=== PATIENT | male | born 1980 | race Caucasian/White ===

== ENCOUNTER 2017-12-24 17:20 | Emergency (ER) | payer OTHER ==
[~2017-12-24] VITALS: Ht 180.3 cm; Wt 99.8 kg
[~2017-12-24 17:20] MED LIST: AZITHROMYCIN250 MG PO; BACTRIM DS TAB1 EACH PO; IBUPROFEN600 MG PO; KEFLEX500 MG PO; NORCO 5-325 TA1 EACH PO; PREDNISONE20 MG PO; PROVENTIL HFA6.7 GM INH
[2017-12-24] MEDS ORDERED: CYCLOBENZAPRINE10 MG PO (20:36)
[2017-12-24] MEDS ORDERED: IBUPROFEN600 MG PO (20:36)
== END 2017-12-24 21:08 | disposition home or self-care (01) ==
LOC: ED 17:20
DX: M54.5 Low back pain (principal)
CPT/HCPCS: 72100; 96372; 99283; J1170

== ENCOUNTER 2018-06-02 22:18 | Emergency (ER) | payer OTHER ==
[~2018-06-02] VITALS: Ht 180.3 cm; Wt 127.0 kg
[~2018-06-02 22:18] MED LIST changes: +CYCLOBENZAPRINE10 MG PO
== END 2018-06-02 23:48 | disposition home or self-care (01) ==
LOC: ED 22:18
DX: S43.401A Unspecified sprain of right shoulder joint, initial encounter (principal); W00.0XXA Fall on same level due to ice and snow, initial encounter
CPT/HCPCS: 73030; 99283

== ENCOUNTER 2020-08-31 05:17 | Day surgery (SDC) | payer OTHER ==
[~2020-08-31] VITALS: Ht 180.3 cm; Wt 136.4 kg
[~2020-08-31 05:17] MED LIST changes: +CEPHALEXIN500 MG PO
[2020-08-31] MEDS ORDERED: ADVIL200 MG PO (05:37)
--- NOTE | 2020-08-31 09:50 | NUR ---
DR. ALMANZA IN PT ROOM.
--- NOTE | 2020-08-31 10:48 | NUR ---
08/31/20 1048 Evie Huffman 1045 PATIENT ARRIVES TO PACU AWAKE. DENIES PAIN OR NAUSEA. RESP EVEN AND UNLABORED, ROOM AIR SATS >95%. DENIES PAIN OR NAUSEA.
--- NOTE | 2020-08-31 11:23 | OR ---
[facility] [address], [place] [address] Signed DATE OF OPERATION: 08/31/2020 SURGEON: Airam Mario MD PREOPERATIVE DIAGNOSIS: Left perianal abscess 7-9 o'clock position. POSTOPERATIVE DIAGNOSIS: Left perianal abscess 7-9 o'clock position. PROCEDURES: 1. Incision and drainage, left perianal abscess. 2. Placement of seton stitch. ESTIMATED BLOOD LOSS: None. INDICATIONS: Luz Maria is a 40-year-old obese gentleman, who has moved up to [facility] from close to his oldest son. The last two days, he has had significant pain and swelling to the left side of his anus. It is somewhat anteriorly. He finally came to emergency room for evaluation. On exam, he had pain, but ER doctor did not feel confident about area of swelling or fluctuance. White count was normal. Therefore, the patient had a CT scan of abdomen and pelvis performed. He has a 25 x 17 x 23 mm fluid collection consistent with an abscess in the left perianal position from about the 7 to 9 o'clock position. I was therefore asked to bring him over to the OR through the ER physician. I had met with Luz Maria and we reviewed the above findings. He has been given Rocephin and Flagyl. I reviewed with him the nature of a perianal abscess and the idea of an anal fistula. He understands these have propensity to recur. He knows there is risk to surgery including, but not limited to bleeding, infection, scarring, change in contour of the skin, leakage around the anus and/or recurrent perianal abscess. He had expressed understanding and wished to proceed. DESCRIPTION OF PROCEDURE: I met with Luz Maria in the preop area. We were able to palpate this area quite readily. Luz Maria confirmed that area. We marked that appropriately with a pen. After this, he was given a saddle block by our nurse setter induction heating equipment. He was then taken in the operating room and placed in the prone alexandr-knife position under monitored anesthesia care. He was prepped and draped in the usual sterile fashion. SCDs were utilized. He did not receive any subcutaneous heparin. A digital rectal exam was performed and again, we Electronically Signed By: AIRAM MARIO MD 08/31/20 1123 PATIENT NAME: LUZ MARIA SMITH OPERATIVE REPORT DATE OF : 76 REPORT #: [id number] PHYSICIAN: AIRAM MARIO MD PCP: NO PRIMARY CARE PHYSICIAN REPORT IS CONFIDENTIAL AND NOT TO BE RELEASED WITHOUT AUTHORIZATION [facility] [address], [place] [address] Signed could easily palpate this area about 2.5 cm in diameter in the left lateral position. He had good sphincter tone. With a half-nuñez retractor, we examined the full extent of the anal canal. He does have some internal and external hemorrhoids. We did see some pus at the dentate line in a direct radial fashion down from this palpable mass. We opened up the skin. Next, the anal verge entered into the abscess cavity. We took cultures and evacuated the pus. The wound was irrigated and suctioned out until clear. We used our tonsils to place yellow seton vessel through this area at the dentate line. This was then tied off. Local anesthetic was then applied. Dry gauze was placed over this along with an ABD and some underwear. Luz Maria was then rotated into the supine position onto his hospital bed and taken into recovery room in stable condition. Airam Mario MD ALB/MODL /[id number] cc: Airam Mario MD Copies: AIRAM MARIO MD ~ Electronically Signed By: AIRAM MARIO MD 08/31/20 1123 PATIENT NAME: LUZ MARIA SMITH OPERATIVE REPORT DATE OF : 76 REPORT #: [id number] PHYSICIAN: AIRAM MARIO MD PCP: NO PRIMARY CARE PHYSICIAN REPORT IS CONFIDENTIAL AND NOT TO BE RELEASED WITHOUT AUTHORIZATION
--- NOTE | 2020-09-01 06:05 | CONS ---
[facility] [address], [place] [address] Signed DATE OF CONSULTATION: 08/31/2020 CHIEF COMPLAINT: Left perianal pain. 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 He has moved up to [place], [place] to be closer to his oldest son. Two days ago, he started to develop pain and swelling on the left side of the anus somewhat anteriorly at about the 7 o'clock position. He finally came to emergency room for evaluation. On exam, no obvious findings were noted. Although, he could point to the area of pain. He had a CT scan of the abdomen and pelvis done and he has a 25 x 17 x 23 mm perianal abscess. I had been called as a general surgeon on-call. We gave him Rocephin and Flagyl and had him come over to our day surgery area. PAST MEDICAL HISTORY: Umbilical MRSA, diverticulosis, valley fever in 2004, heart murmur as a child. PAST SURGICAL HISTORY: None. SOCIAL HISTORY: He does not smoke or drink. He has no primary care provider. 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 He is with his girlfriend of 5 years. They have 1 child together. He has 1 child from a previous marriage and she has 2 children from a previous marriage. His mother is Ximena at [phone]. He prefers the [facility]. He has no primary care provider. FAMILY HISTORY: Mother had some skin cancer on her breast actually. REVIEW OF SYSTEMS: He had 10 systems reviewed. He seems to be healthy except for his obesity. ALLERGIES: None. MEDICATIONS: Ibuprofen. PHYSICAL EXAMINATION: VITAL SIGNS: His blood pressure is 130/92, heart rate is 93, heart rate 14, temperature is 98.4. He is 93% on room air. He is 5 feet 11 inches at 130 kg. Electronically Signed By: AIRAM MARIO MD 09/01/20 0605 PATIENT NAME: LUZ MARIA SMITH CONSULTATION DATE OF : 76 REPORT #: [id number] PHYSICIAN: AIRAM MARIO MD PCP: NO PRIMARY CARE PHYSICIAN REPORT IS CONFIDENTIAL AND NOT TO BE RELEASED WITHOUT AUTHORIZATION [facility] [address], [place] [address] Signed GENERAL: Luz Maria is a 40-year-old gentleman who generally appears healthy and at his stated age. He is clearly obese. He is very cooperative and excellent historian. LUNGS: Clear to auscultation bilaterally. HEART: Regular rate and rhythm without murmurs. ABDOMEN: Obese, but soft. He rolled over in the prone position, was able to point to the 7 o'clock position. I can feel the rounded indurated area associated with his abscess on the left side of the anus at the 7 o'clock position. We marked that with a pin. LABORATORY DATA: His white blood cell count 9.7, hemoglobin is 14. Electrolytes were not drawn. RADIOGRAPHIC STUDIES: A CT scan of the abdomen and pelvis shows a left perianal fluid collection around 25 x 17 x 23 mm consistent with an abscess. ASSESSMENT AND PLAN: Luz Maria is a 40-year-old obese gentleman with a left perianal abscess. He needs to undergo incision and drainage. I have reviewed perianal abscesses with him in detail. He understands they have a high propensity to recur. Our goal today is to incise and drain the abscess and allow to heal in secondarily. At least half of these will recur. He knows there is risk including, but not limited to bleeding, infection, scarring, change in contour of the skin, as well as recurrent perianal abscess. He has expressed understanding and would like to proceed. Airam Mario MD ALB/MODL /[id number] cc: Chart Filed Incomplete Airam Mario MD Copies: CHART FILED INCOMPLETE Electronically Signed By: AIRAM MARIO MD 09/01/2005 PATIENT NAME: LUZ MARIA SMITH CONSULTATION DATE OF : 76 REPORT #: [id number] PHYSICIAN: AIRAM MARIO MD PCP: NO PRIMARY CARE PHYSICIAN REPORT IS CONFIDENTIAL AND NOT TO BE RELEASED WITHOUT AUTHORIZATION [facility] [address], [place] [address] Signed AIRAM MARIO MD ~ Electronically Signed By: AIRAM MARIO MD 09/01/20 0605 PATIENT NAME: LUZ MARIA SMITH CONSULTATION DATE OF : 76 REPORT #: [id number] PHYSICIAN: AIRAM MARIO MD PCP: NO PRIMARY CARE PHYSICIAN REPORT IS CONFIDENTIAL AND NOT TO BE RELEASED WITHOUT AUTHORIZATION
== END 2020-08-31 11:15 | disposition home or self-care (01) ==
LOC: ED 05:17 → DS 07:16
PROVIDERS: ATTEND Colon & Rectal Surgery
PROC: 0DQQXZZ Repair Anus, External Approach (ICD-10-PCS; 2020-08-31)
PROC: 0D9QXZZ Drainage of Anus, External Approach (ICD-10-PCS; principal; 2020-08-31 10:30)
DX: K61.0 Anal abscess (principal); K64.4 Residual hemorrhoidal skin tags; K64.8 Other hemorrhoids; E66.9 Obesity, unspecified; Z68.41 Body mass index [BMI] 40.0-44.9, adult
CPT/HCPCS: 00902; 74177; 80053; 85025; 87070; 87075; 87205; 96374; 96375; 99284-25; C9803; J0696; J1170; J1885; J2001; J2250; J2405; J2704; J3010; J7121; Q9967; U0003

== ENCOUNTER 2020-09-04 21:44 | Observation (INO) | payer OTHER ==
[~2020-09-04] VITALS: Ht 180.3 cm; Wt 140.0 kg
[~2020-09-04 21:44] MED LIST changes: +ADVIL200 MG PO
--- OUTSIDE RECORDS SUMMARY | 2020-09-04 21:48 | XMS ---
PreManage Notification: LUZ MARIA SMITH Security Outpatient Physical Therapist Assistant Events No recent Security Events currently on file CRITERIA MET - [facility] - 2 Visits in 30 Days CARE PROVIDERS There are no care providers on record at this time. Luis has no Care Guidelines for this patient. Laura VISIT COUNT (12 MO.) 2 [facility] [place] [facility] TOTAL 2 NOTE: Visits indicate total known visits. ED/C VISIT TRACKING (12 MO.) 09/04/2020 21:45 [facility] [place] TYPE: Emergency COMPLAINT: - POST OP PROBLEM 08/31/2020 05:18 [facility] [place] TYPE: Emergency COMPLAINT: - PAIN INPATIENT VISIT TRACKING (12 MO.) No inpatient visits to display in this time frame [email or web address]
[2020-09-04] MEDS ORDERED: AMOX TR-K CLV1 EACH PO (22:09)
--- NOTE | 2020-09-05 02:39 | NUR ---
09/05/20 0239 Jane Powers PT ARRIVES TO PACU, AROUSABLE TO STIMULUS. HE HAS OBVIOUS SLEEP APNEA WITH SNORING.
--- NOTE | 2020-09-05 03:00 | NUR ---
pt ARRIVED TO FLOOR, RECEIVED REPORT FROM ANISA HENDRICKSON. pt ABLE TO TRANSFER SELF FROM STRETCHER TO BED. THIS RN TO DO ADMISSION.
--- NOTE | 2020-09-05 03:30 | NUR ---
ASSESSMENT DONE. DENIES PAIN. NO BLEEDING NOTED ON DRESSING. pt PROVIDED WITH CLEAR LIQUIDS. DENIES NAUSEA. CALL LIGHT WITHIN REACH. EDUCATED TO CALL PRIOR TO GETTING UP. pt VERBALIZED UNDERSTANDING.
--- NOTE | 2020-09-05 04:27 | NUR ---
ROUNDED ON pt. RESTING IN BED WITH EYES CLOSED, RESPIRATIONS REGULAR AND UNLABORED. CALL LIGHT WITHIN REACH.
--- NOTE | 2020-09-05 05:46 | NUR ---
IN TO DO ASSESSMENT. pt WOKE TO VOICE. DENIED PAIN AND NAUSEA. NOTED SCANT SS SHADOWING ON ABD PAD, REPLACED PER ORDERS. pt DENIED NUMBNESS TO PELVIC AREA. CMS INTACT. NO CHANGES TO ASSESSMENT. CALL LIGHT WITHIN REACH.
--- NOTE | 2020-09-05 08:56 | NUR ---
Admin two tabs [place] 5/325mg po and Ibuprofen 800mg po for reports of 7/10 rectal pain.
--- NOTE | 2020-09-05 09:24 | CONS ---
[facility] [address], [place] [address] Signed DATE OF CONSULTATION: 09/04/2020 CHIEF COMPLAINT: Rectal bleeding. HISTORY OF PRESENT ILLNESS: Luz Maria is a 40-year-old obese gentleman, who came on 08/31/2020 for perianal abscess. He underwent incision and drainage with this placement of a seton stitch. He had been discharged home and doing well. He drove over [address] today and he came back, and noticed rectal bleeding. He came to emergency room for evaluation. Direct pressure did not control the bleeding. We are going to inject some local anesthetic with epinephrine in that area, but he did not tolerate that particular well. Seems like the bleeding come out from the deeper into the wound around the seton stitch. Consequently, I was asked to come and see him here in the emergency room. PAST MEDICAL HISTORY: Umbilical MRSA, diverticulosis, valley fever in 2004, heart murmur as a child. PAST SURGICAL HISTORY: Incision and drainage of a perirectal abscess. SOCIAL HISTORY: He does not smoke or drink. He has no primary care provider. 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 He has been with his girlfriend in the last 5 years, who happens to manage our local [employer] store. They have one child together. His mother is Ximena at [phone]. He prefers the [employer] [facility]. FAMILY HISTORY: He has had his mother had skin cancer and breast cancer. His mother had skin cancer on her breast. REVIEW OF SYSTEMS: He had 10 systems reviewed. These are actually pretty healthy except for his obesity. ALLERGIES: None. MEDICATIONS: Ibuprofen. PHYSICAL EXAMINATION: VITAL SIGNS: His blood pressure is 142/91, his heart rate is 89, respiratory rate 20, temperature is 98.1, and he is 97% on room air. Electronically Signed By: AIRAM MARIO MD 09/05/20 0924 PATIENT NAME: LUZ MARIA SMITH CONSULTATION DATE OF : 76 REPORT #: [id number] PHYSICIAN: AIRAM MARIO MD PCP: NO PRIMARY CARE PHYSICIAN REPORT IS CONFIDENTIAL AND NOT TO BE RELEASED WITHOUT AUTHORIZATION [facility] [address], [place] [address] Signed GENERAL: Luz Maria is a 40-year-old gentleman, appears healthy and at his stated age, lying supine in his hospital bed. He is alert, awake, and interactive. LUNGS: Clear to auscultation. HEART: Regular rate and rhythm. ABDOMEN: Obese. RECTAL: Delayed at the time of the surgery. LABORATORY DATA: His white blood count 6.6, his hemoglobin is 13.7, it was originally 14, and platelets are 231. RADIOGRAPHIC STUDIES: None. ASSESSMENT AND PLAN: Luz Maria is a 40-year-old gentleman, who has some bleeding following incision and drainage of a perirectal abscess and placement of seton stitch. It may be down deeper in the abscess cavity. We may have to do a sphincterotomy and open that up completely or we may be able just pack the wound and we will keep him at least for overnight and see if that does not settle down. I have explained this to Luz Maria in detail. He has expressed understanding and would like to proceed. He understands there is risk to that surgery including, but not limited to bleeding, infection, scarring, change in contour of the skin as well as recurrent perirectal abscesses and fecal leakage and/or incontinence. He has expressed understanding and would like to proceed. Airam Mario MD [facility]/MODL /[id number] cc: Airam Mario MD Copies: AIRAM MARIO MD ~ Electronically Signed By: AIRAM MARIO MD 09/05/20 0924 PATIENT NAME: LUZ MARIA SMITH CONSULTATION DATE OF : 76 REPORT #: [id number] PHYSICIAN: AIRAM MARIO MD PCP: NO PRIMARY CARE PHYSICIAN REPORT IS CONFIDENTIAL AND NOT TO BE RELEASED WITHOUT AUTHORIZATION
--- NOTE | 2020-09-05 09:24 | OR ---
[facility] [address], [place] [address] Signed DATE OF OPERATION: 09/04/2020 SURGEON: Airam Mario MD PREOPERATIVE DIAGNOSIS: Perianal postoperative bleeding, status post incision and drainage of left perianal abscess and seton stitch placement. POSTOPERATIVE DIAGNOSIS: Perianal postoperative bleeding, status post incision and drainage of left perianal abscess and seton stitch placement. PROCEDURES: 1. Exam under anesthesia. 2. Control of bleeding. ESTIMATED BLOOD LOSS: Minimal. FINDINGS: Luz Maria had bleeding from the skin edge with the knot of the vessel loop it rubs when he drove several hours one way today. We removed the knot from our vessel loop and used 3-0 silk stitches x2 to hold the vessel loop in place. INDICATIONS: Luz Maria is a 40-year-old obese gentleman, who came to us on 08/31/2020 with a left perianal abscess. He was taken to the operating room. An incision and drainage of the abscess. We could see the pus coming through the dentate line, so we placed a yellow vessel loop through here. We used three knots on the vessel loop to secure it in position. He had drove several hours one way today in his car. He came to the emergency room with bleeding from that area. The ER doctor really was unable to ascertain that bleeding site and Luz Maria did not tolerate injection of local anesthetic with epinephrine. Consequently, came to emergency room to see him. I explained Luz Maria we would take him over to the operating room for an exam under anesthesia, so we could find the bleeding site and get that under control. He understands this is very similar to what he went through just a few days ago. At this time, and I would keep him through the night till morning. He was 1st happy that he is in good position, no longer bleeding, will be let him go home tomorrow morning. He understands there is risk including, but not limited to bleeding, infection, scarring, change in contour of the skin, recurrent perianal abscesses, and possible fecal soilage incontinence. He had Electronically Signed By: AIRAM MARIO MD 09/05/20 0924 PATIENT NAME: LUZ MARIA SMITH OPERATIVE REPORT DATE OF : 76 REPORT #: [id number] PHYSICIAN: AIRAM MARIO MD PCP: NO PRIMARY CARE PHYSICIAN REPORT IS CONFIDENTIAL AND NOT TO BE RELEASED WITHOUT AUTHORIZATION [facility] [address], [place] [address] Signed expressed understanding and wished to proceed. PROCEDURE NOTE: Luz Maria was taken into our operating room and placed in the prone alexandr-knife position. He had received a saddle block from our nurse real estate assessor. He was given monitored anesthesia care by the nurse real estate assessor. We did not give him any antibiotics. We did not give him any heparin. SCDs were utilized. He was then prepped and draped in the usual sterile fashion. On examination, we could see there was a small arterial in the edge of the skin out laterally, that was bleeding. This is the area where the not on the seton stitch was rubbing. We simply cauterized that and all bleeding stopped. We then ended the knots on the yellow vessel loop and we used 3-0 silk suture x2 to tie the vessel loop. After this, we injected local anesthetic in and around the wound. We had examined the anal canal with the help of the half-nuñez retractor and no other bleeding source was found. He was then cleaned and a dry ABD and underwear were applied. He was then rotated onto his hospital bed and taken into recovery room in stable condition. Airam Mario MD [facility]/MODL /[id number] cc: Airam Mario MD Copies: AIRAM MARIO MD ~ Electronically Signed By: AIRAM MARIO MD 09/05/20 0924 PATIENT NAME: LUZ MARIA SMITH SUSAN OPERATIVE REPORT DATE OF : 76 REPORT #: [id number] PHYSICIAN: AIRAM MARIO MD PCP: NO PRIMARY CARE PHYSICIAN REPORT IS CONFIDENTIAL AND NOT TO BE RELEASED WITHOUT AUTHORIZATION
== END 2020-09-05 11:25 | disposition home or self-care (01) ==
LOC: ED 21:44 → MS 21:46
PROVIDERS: ADMIT Colon & Rectal Surgery; ATTEND Colon & Rectal Surgery
PROC: 0W3M0ZZ Control Bleeding in Male Perineum, Open Approach (ICD-10-PCS; principal; 2020-09-04)
DX: K91.840 Postprocedural hemorrhage of a digestive system organ or structure following a digestive system procedure (principal); E66.9 Obesity, unspecified; Z20.822 Contact with and (suspected) exposure to COVID-19; Z98.890 Other specified postprocedural states; Y65.8 Other specified misadventures during surgical and medical care
CPT/HCPCS: 00902; 85025; 96374; 96375; 96376; 99284-25; C9803; G0378; J1170; J2001; J2250; J2405; J2704; J3010; J7030; J7121; U0003

== ENCOUNTER 2020-09-18 19:11 | Observation (INO) | payer OTHER ==
[~2020-09-18] VITALS: Ht 180.3 cm; Wt 136.1 kg
[~2020-09-18 19:11] MED LIST changes: +AMOX TR-K CLV1 EACH PO
--- OUTSIDE RECORDS SUMMARY | 2020-09-18 19:14 | XMS ---
PreManage Notification: LUZ MARIA SMITH Security Clinical Education Manager Events No recent Security Events currently on file CRITERIA MET - [facility] - 2 Visits in 30 Days CARE PROVIDERS There are no care providers on record at this time. Luis has no Care Guidelines for this patient. Laura VISIT COUNT (12 MO.) 3 [facility] [facility] TOTAL 3 NOTE: Visits indicate total known visits. ED/UCC VISIT TRACKING (12 MO.) [facility] COMPLAINT: - POST OP SWELLING 09/04/2020 21:45 [facility] [place] TYPE: Emergency COMPLAINT: - POST OP PROBLEM 08/31/2020 05:18 [facility] [place] TYPE: Emergency COMPLAINT: - PAIN INPATIENT VISIT TRACKING (12 MO.) 09/04/2020 21:46 [facility] [place] TYPE: Observation COMPLAINT: - POST OP BLEEDING DIAGNOSES: - Postprocedural hemorrhage of skin and subcutaneous tissue following other procedure - Other specified misadventures during surgical and medical care - Postprocedural hemorrhage of a digestive system organ or structure following a digestive system procedure - Other specified postprocedural states - Obesity, unspecified [email or web address]
--- NOTE | 2020-09-19 01:40 | NUR ---
PT TO ROOM 125 FROM ED VIA STRETCHER. ABLE TO TRANSFER SELF TO BED. ALERT AND ORIENTED. ORDERS RECEIVED. IVF INFUSING PER ORDER. PRN FOR PAIN ADMINISTERED FOR REPORTED 5/10 HEADACHE. PERIANAL ABSCESS WITH SMALL AMOUNT DRAINAGE. LOOP DRAIN IN PLACE. PT ORIENTED TO ROOM AND NURSE CALL LIGHT. DENIES QUESTIONS OR CONCERNS. CALL LIGHT IN REACH.
--- NOTE | 2020-09-19 02:26 | NUR ---
PT REPORTS CONTINUED HEADACHE IN SPITE OF PAIN MED ADMINISTRATION. DR. GAN NOTIFIED. NEW TELEPHONE ORDERS RECEIVED. VERIFIED WITH READ BACK METHOD.
--- NOTE | 2020-09-19 02:47 | NUR ---
PT WITH LARGE EMESIS. REPORTS FEELING NAUSEATED DUE TO "BAD HEADACHE". PRN FOR NAUSEA ADMINISTERED. PRN ADMINISTERED FOR REPORTED 8/10 HEADACHE/"BUTT PAIN". NO FURTHER NEEDS AT THIS TIME.
--- NOTE | 2020-09-19 03:38 | NUR ---
IN TO ROUND ON PT. PT REPORTS JAMES AND NAUSEA MUCH IMPROVED AFTER PRN ADMINISTRATION. UP TO BR WITH MINIMAL SBA TO VOID. GAIT STEADY. BACK TO BED, LEILANI WELL. DENIES FURTHER NEEDS. CALL LIGHT IN REACH.
--- NOTE | 2020-09-19 06:15 | NUR ---
PT UP TO BR FOR SITZ BATH. PT ONLY ABLE TO TOLERATE <10 MIN IT INCREASED PAIN. BACK TO BED. IVF INFUSING. NO FURTHER NEEDS.
--- NOTE | 2020-09-19 06:27 | NUR ---
IV ABX INFUSING. PRN FOR PAIN ADMINISTERED FOR REPORTED HEADACHE/PETER PAIN.
--- NOTE | 2020-09-19 07:37 | NUR ---
this rn received report from jackie ortiz. pt appears to be resting with respirations noted, pt is off loading on his side
--- NOTE | 2020-09-19 08:30 | NUR ---
THIS RN IN PTS ROOM PER PT REQUEST DUE TO PT STATING HIS IV WAS BEEPING. PT ALSO STATES THAT HE WAS HAVING A BIT MORE PAIN IN HIS RECTUM AREA. THIS RN STATES IT IS A BIT TOO EARLY TO GIVE TORADOL. THIS RN DISCUSSED WITH PT THAT DILUDID MAY HAVE CAUSED HIS SEVERE HEADACHE EARLIER.
--- NOTE | 2020-09-19 09:45 | NUR ---
THIS RN IN PTS ROOM TO PROVIDE PT WITH 30MG OF TORADOL PER PT REQUEST. PT REPORTS PAIN IN THE RECTUM AREA IS 6/10.
--- NOTE | 2020-09-19 10:50 | NUR ---
THIS RN IN PTS ROOM TO HAVE PT SIGN CONSENT FORM FOR SURGERY PER . PT STATES THAT HE HAS NO QUESTIONS AND THIS WAS THE ROUTE OF CARE THAT HE WAS HOPING FOR!
[2020-09-19] MEDS ORDERED: HYDROCODON-ACE1 EAC8 PO (12:39)
[2020-09-19] MEDS ORDERED: ADVIL LIQUI-GE200 MG PO (12:40)
--- NOTE | 2020-09-19 12:41 | NUR ---
MED REC COMPLETE
--- NOTE | 2020-09-19 12:45 | NUR ---
PT OFF OF FLOOR AT THIS TIME FOR SURGERY.
[2020-09-19] MEDS ORDERED: CIPROFLOXACIN500 MG PO (14:08)
--- NOTE | 2020-09-19 14:08 | NUR ---
09/19/20 1408 Shyla Kumar 1356-PATIENT ARRIVED TO PACU AWAKE DENIES PAIN OR NAUSEA. RA 97% RR EVEN. IVF INFUSING. PATIENT REPOSITIONED TO LEFT SIDE WITH ASSISTANCE FROM RN AND DRESSING HAS SMALL AMT OF DRAINAGE ON BUTTOCK ABD PAD IN PLACE. 1408-PATIENT AWAKE DENIES PAIN OR NAUSEA. RA 94% RR EVEN
[2020-09-19] MEDS ORDERED: METRONIDAZOLE250 MG PO (14:09)
[2020-09-19] MEDS ORDERED: IBUPROFEN600 MG PO (14:09)
--- NOTE | 2020-09-19 14:45 | NUR ---
PT ARRIVED BACK TO THE FLOOR AT THIS TIME. PT AWAKE AND ALERT. PT REPORTS NO PAIN AND HAS NO CONCERNS FROM PROCEDURE. THIS RN INSPECED SITE- COVERED WITH ABD GAUZE WITH SMALL AMOUNT F DRAINAGE NOTED. PT DOES STATE THAT HE HAS FEELING IN HIS BUTT AND IS ABLE TO TELL TOUCH ON HIS LEGS
[2020-09-19] MEDS ORDERED: HYDROCODON-ACE1 EA11 PO (15:13)
--- NOTE | 2020-09-19 15:45 | NUR ---
THIS RN IN PTS ROOM TO CHECK ON. PT REPORTS THAT HE IS STARTING TO FEEL THE DRAIN BUT DOES NOT HAVE ANY NOTED DISCOMFORT AT THIS TIME.
--- NOTE | 2020-09-20 22:30 | HP ---
[facility] [address] [place], [place] [address] Signed ADMISSION DATE: 09/18/2020 PROBLEM: Persistent or recurrent perianal/perirectal abscess. HISTORY OF PRESENT ILLNESS: This 40-year-old white man underwent incision and drainage of a perirectal abscess by Dr. Airam Almanza approximately two weeks ago. Review of my note showed this occurred on August 31. Drainage of the perirectal abscess included seton drain placement (yellow vessel loop). On September 05, several days later, the site had bleeding, which required suturing for control. He saw Dr. Almanza approximately four days ago, complaining of increasing swelling and pain. He did do at least two sitz baths at home, but nothing more following his initial procedure. He presented to the emergency room, where he was evaluated by Dr. Radford showing localized tenderness and erythema in the region of the previous drain. It was a bit more lateral and anterior, however. A CT scan was performed, which showed enlargement of an abscess, fat stranding and things highly suggestive of incomplete drainage or additional abscess. On that basis, he was admitted to the hospital under my service and begun on Levaquin and Flagyl intravenously as well as saline solution. The patient has had no fever, chills, or sign of systemic infection. His white count is 9.3. PAST MEDICAL HISTORY: Rather unremarkable. ALLERGIES: He has no known drug allergies. MEDICATIONS: At discharge had included ibuprofen, Augmentin, and hydrocodone. SOCIAL HISTORY: He is . He is planning to go on a family vacation a week from today. He does not use alcohol or drugs. He does not smoke. PHYSICAL EXAMINATION: GENERAL: A very muscular and somewhat obese white man with multiple tattoos in the upper torso. He shows no sign of systemic toxicity. NECK: Trachea is midline. CHEST: Clear. HEART: Regular, without murmur. ABDOMEN: Soft and nontender. Electronically Signed By: CHELA GAN MD 09/20/200 PATIENT NAME: LUZ MARIA SMITH HISTORY AND PHYSICAL DATE OF : 76 REPORT #: [id number] PHYSICIAN: CHELA GAN MD PCP: AIRAM ALMANZA MD REPORT IS CONFIDENTIAL AND NOT TO BE RELEASED WITHOUT AUTHORIZATION [facility] [address] [place], [place] [address] Signed GENITOURINARY: Examination of perineum shows a right-sided yellow vessel loop in the region of erythema and tension suggestive of recurrent or persistent abscess. The left side appears normal. There was a fair amount of perianal secretions and so forth. ASSESSMENT AND PLAN: The patient has recurrent or persistent right perirectal abscess. I would recommend exam under anesthesia, additional drainage, and possibly additional deep drain placement. Whether or not there was a supralevator abscess or something that did not quite get drain is uncertain though unlikely. The risks of bleeding, infection, recurrent disease and so forth were reviewed with him. He understands and wished to proceed. MD ANJU Holland/SCOTTIE /[id number] cc: MD Airam Wilkins MD Copies: AIDA RADFORD MD, ANDREW L MD ~ Electronically Signed By: CHELA GAN MD 09/20/20 2230 PATIENT NAME: LUZ MARIA SMITH HISTORY AND PHYSICAL DATE OF : 76 REPORT #: [id number] PHYSICIAN: CHELA GAN MD PCP: AIRAM ALMANZA MD REPORT IS CONFIDENTIAL AND NOT TO BE RELEASED WITHOUT AUTHORIZATION
--- NOTE | 2020-09-20 22:30 | OR ---
[facility] [address] [place], [place] [address] Signed DATE OF OPERATION: 09/19/2020 SURGEON: Chela Gan MD PREOPERATIVE DIAGNOSES: 1. Recurrent/persistent left perirectal abscess. 2. History of incision and drainage and placement of yellow vessel seton for drainage on August 31 (Dr. Airam Almanza), subsequent hemorrhage control with suture. POSTOPERATIVE DIAGNOSIS: Left perirectal abscess at outside area of previous drainage, but contiguous with it. PROCEDURES: 1. Exam under anesthesia. 2. Incision and drainage`of deep perirectal abscess. 3. Placement of 5 [place] drain with knotted tip for perirectal drainage. ANESTHESIA: Saddle block with IV sedation, Nikhil Corcoran CRNA INDICATIONS: This 40-year-old somewhat obese man is a patient of Dr. Airam Almanza. He underwent incision and drainage of a left perirectal abscess following a CT scan performed, which showed a relatively small perirectal abscess. Incision and drainage was accomplished and placement of a yellow vessel loop drain undertaken as well. A few days later, he had significant bleeding from the operative site requiring operative control by Dr. Almanza. He presented to the emergency room late last night with increasing pain in the perirectal area, the area of prior loop drainage. The patient did do sitz baths as directed, but only twice from what I gather. He has been on antibiotic Augmentin. A CT scan was performed under the direction of the emergency room physician, Dr. Radford who evaluated him showing a much larger perirectal abscess. The yellow vessel loop was well visualized. He is now to undergo incision and drainage of what may be a persistent or new or incompletely drained abscess from before. The risk of bleeding, infection, development of exzdjkz-mk-mym and other unforeseen complications was reviewed with him in detail, he understands and wished to proceed. FINDINGS: The yellow vessel loop was secured to itself not with a knot, but rather with sutures Electronically Signed By: CHELA GAN MD 09/20/20 2230 PATIENT NAME: LUZ MARIA SMITH OPERATIVE REPORT DATE OF : [birth year] REPORT #: [id number] PHYSICIAN: CHELA GAN MD PCP: AIRAM ALMANZA MD REPORT IS CONFIDENTIAL AND NOT TO BE RELEASED WITHOUT AUTHORIZATION [facility] [address] [place], [place] [address] Signed making for an atraumatic seton. The seton appeared to be nearby but not contiguous with the area of the abscess. Deeper probing showed a copious amount of purulent material withdrawn from the area more cephalad and a bit more lateral than what appears to have been draining site before. Gram stain and cultures were obtained. It appeared that the cavity extended to the perirectal space superiorly far more than previously and well above the area of the dentate line. It did not appear to be a supralevator abscess, however. Rather than increased risk of jtrjkqt-wz-wir development by puncturing through the mid rectal wall to allow for loop drainage, a 5/8th inch [place] was tied into a knot in the distal portion and passed into the depths of the wound and secured to the perianal tissue with a chromic suture anticipating explantation of the drain later. DESCRIPTION OF PROCEDURE: The patient was brought to the operating room after undergoing a saddle block anesthetic and placed in a prone alexandr-knife position. The buttocks were taped apart and the perianal area prepared with a Betadine based solution. Examination in the left perianal area showed the yellow vessel loop to be not particularly deep within the soft tissue of the perianal space. The lateral portion of the wound had granulated and was healing. Probing of the depth of the loop drain did not show drainage, but more aggressive and deeper probing allowed for puncture of an abscess cavity just out of reach of the loop. This allowed for egress of copious amounts of thick purulent material. Gram stain and cultures were obtained. The initial incision was of a size that once a bit open with a hemostat could accommodate the index finger and the abscess cavity extended alongside the left perirectal space more cephalad. It did not appear high enough to actually be a supralevator abscess, however. Copious irrigation was undertaken with a bulb syringe. The extent of the abscess cavity was much higher than the dentate line. On that basis, consideration was made for a counterincision in the mid rectum to allow for a yellow vessel loop. Mindful that this could result in higher chance of chronic psnqkkn-cs-pox. It is deemed more advisable simply to allow for a perirectal drain externally. On that basis, a 5/8th inch [place] drain was tied into a vital knot in the distal portion extended into the depths of the wound and then secured to the perianal skin with a 2-0 chromic suture loosely applied. The drain was trimmed to appropriate length and a peripad was applied. 20 mL of 0.25% Marcaine with epinephrine was injected locally. The patient ultimately returned to the supine position, taken to recovery room in good condition having suffered no complication. Sponge, needle, and instrument counts were reported as correct x3. Electronically Signed By: CHELA GAN MD 09/20/20 8077 PATIENT NAME: LUZ MARIA SMITH SUSAN OPERATIVE REPORT DATE OF : [birth year] REPORT #: [id number] PHYSICIAN: CHELA GAN MD PCP: AIRAM ALMANZA MD REPORT IS CONFIDENTIAL AND NOT TO BE RELEASED WITHOUT AUTHORIZATION [address] [place], [place] [address] Signed MD ANJU Holland/JAYESH /[id number] cc: MD Airam Wilkins MD Copies: AIDA RADFORD MD, ANDREW L MD ~ Electronically Signed By: CHELA GAN MD 09/20/202229 PATIENT NAME: LUZ MARIA SMITH OPERATIVE REPORT DATE OF : 76 REPORT #: [id number] PHYSICIAN: CHELA GAN MD PCP: AIRAM ALMANZA MD REPORT IS CONFIDENTIAL AND NOT TO BE RELEASED WITHOUT AUTHORIZATION
== END 2020-09-19 18:00 | disposition home or self-care (01) ==
LOC: ED 19:11 → MS 23:58
PROVIDERS: ADMIT Surgery; ATTEND Surgery
PROC: 0D9P7ZZ Drainage of Rectum, Via Natural or Artificial Opening (ICD-10-PCS; principal; 2020-09-19 13:00)
DX: K61.1 Rectal abscess (principal); Z20.822 Contact with and (suspected) exposure to COVID-19
CPT/HCPCS: 00902; 72193; 85025; 87070; 87075; 87077; 87186; 87205; 96367; 96375; 96376; 99284-25; A9270; C9803; G0378; J1170; J1885; J1956; J2001; J2250; J2405; J2704; J7030; J7121; Q9967; U0003

== ENCOUNTER 2021-04-09 07:15 | Inpatient (IN) | payer OTHER ==
[~2021-04-09] VITALS: Ht 180.3 cm; Wt 141.2 kg
[~2021-04-09 07:15] MED LIST changes: +ACETAMINOPHEN500 MG PO; +ADVIL LIQUI-GE200 MG PO; +CIPROFLOXACIN500 MG PO; +HYDROCODON-ACE1 EA10 PO; +HYDROCODON-ACE1 EA11 PO; +HYDROCODON-ACE1 EAC8 PO; +LOSARTAN POTASS25 MG PO; +METFORMIN HCL500 M1 PO; +METRONIDAZOLE250 MG PO; +PIOGLITAZONE HC15 MG PO; +ROSUVASTATIN CA10 MG PO; +VICTOZA 3-0.6 MG/0.1 SUB-Q
--- OUTSIDE RECORDS SUMMARY | 2021-04-09 07:18 | XMS ---
PreManage Notification: LUZ MARIA SMITH Security Normalizer Events No recent Security Events currently on file CRITERIA MET - [facility] - 2 Visits in 30 Days CARE PROVIDERS [facility] 04/06/2021-Current PHONE: [phone] Luis has no Care Guidelines for this patient. Laura VISIT COUNT (12 MO.) 5 [facility] TOTAL 5 NOTE: Visits indicate total known visits. ED/UCC VISIT TRACKING (12 MO.) 04/09/2021 07:16 [facility] TYPE: Emergency COMPLAINT: - LT HIP SWELLING 04/05/2021 22:32 [facility] TYPE: Emergency COMPLAINT: - SKIN PROBLEM/ ABSCESS 09/18/2020 19:12 [facility] TYPE: Emergency COMPLAINT: - POST OP SWELLING 09/04/2020 21:45 [facility] TYPE: Emergency COMPLAINT: - POST OP PROBLEM 08/31/2020 05:18 [facility] TYPE: Emergency COMPLAINT: - PAIN INPATIENT VISIT TRACKING (12 MO.) 04/05/2021 22:33 [facility] TYPE: Observation COMPLAINT: - PERIRECTAL ABSCESS DIAGNOSES: - group home (current) use of oral hypoglycemic drugs - Type 2 diabetes mellitus without complications - Morbid (severe) obesity due to excess calories - Body mass index [BMI]40.0-44.9, adult - Rectal abscess 09/18/2020 23:58 [facility] TYPE: Observation COMPLAINT: - PERIRECTAL ABCESS DIAGNOSES: - Rectal abscess - Anal abscess 09/04/2020 21:[address] [facility] [place] TYPE: Observation COMPLAINT: - POST OP BLEEDING DIAGNOSES: - Postprocedural hemorrhage of skin and subcutaneous tissue following other procedure - Other specified misadventures during surgical and medical care - Postprocedural hemorrhage of a digestive system organ or structure following a digestive system procedure - Other specified postprocedural states - Obesity, unspecified [email or web address]
--- NOTE | 2021-04-09 13:50 | NUR ---
04/09/21 1350 Sharron Garber 1346: PT ARRIVES TO PACU FROM OR AWAKE AND ALERT. PT DENIES ANY PAIN OR NAUSEA. MICHAEL TREVINO AND SHUKRI OAKES, MANAGER CONCRETE SECOND RN. DR. GAN IN PACU AT THIS TIME.
--- NOTE | 2021-04-09 14:05 | NUR ---
this rn called femi Sher rn for report, found out pt is in surgery for I/d. and further report at bedside post surgery.
--- NOTE | 2021-04-09 18:48 | NUR ---
pt turned repositioned to right side, pain in bottom, explained sitz bath after bm and tid - chargemaster analyst looking for kit - explained use of hand held shower in place if not found. pain rates 10/10 after po dilaudid. explained po tylenol not available yet, and iv toradol given earlier today - discussed with chargemaster analyst - and agree to give iv dilaudid 0.5 mg now for pain and discomfort - sm amt of drainage noted on pad left glut - new pads and strech breifs to bathroom for pt - he wants to change as needed after dinner.
--- NOTE | 2021-04-09 21:00 | NUR ---
PT. DISCONNECTED FROM IVF FOR A SHOWER. TOBACCO PREVENTION HEALTH EDUCATOR IN THE ROOM TO ASSIST.
--- NOTE | 2021-04-09 21:10 | NUR ---
PT CALLED TO HAVE IV HOOKED BACK UP AFTER TAKING HIS SHOWER, PRIMARY RN JACK IS NOW IN THE ROOM. CALL LIGHT IS CLOSE.
--- NOTE | 2021-04-09 21:30 | NUR ---
REPORT RECEIVED FROM RN AND PT. CARE RESUMED. PT. IS ALERT AND ORIENTED. HE REPORTS 9/10 JAMES AND RECTAL PAIN. RIGHT GLUTEAL AREA IN INDURATED AND RED. DRAIN AND PAD IN PLACE WITH SCANT RED DRAINAGE. PT. ON R.A. AND 02 SAT IS 94%. IV SITES WNL AND FLUSH. HE IS ABLE TO AMBULATE WITH SBA. PT. STATES HE PREFERS IV DILAUDID, BUT WOULD LIKE TO STOP TAKING IT BY MIDNIGHT IN ORDER TO BE READY FOR DISCHARGE TOMORROW. DISCUSSED POC, CLEANING PETER RECTAL ARE, MEDS AND PAIN MANAGEMENT. LEFT RESTING WITH CALL LIGHT IN REACH.
--- NOTE | 2021-04-09 22:00 | NUR ---
ADMIN. DILAUDID AND PT. BEGAN TO VOMIT. HE VOMITED 700ML OF BROWN LIQUID. PT. STATES VOMITING DUE TO SEVERE HEADACHE THAT BEGAN THIS MORNING AFTER MORPHINE ADMIN. PT. BROUGHT TYLENOL FOR HEADACHE AND A JELLO. WILL CONTINUE TO MONITOR.
--- NOTE | 2021-04-09 23:34 | NUR ---
ROUNDING ON PT. HE IS RESTING WITH EYES CLOSED AND BREATHING IS UNLABORED.
--- NOTE | 2021-04-10 01:15 | NUR ---
CALL LIGHT ON. pt REQUESTED PAIN MEDICATION "I WANT THE PAIN SHOT, THE ONE THAT STARTS WITH A D" REFUSED ORAL MEDICATION AT THIS TIME, EDUCATION DONE ON PAIN MANAGEMENT. pt STATES "THE IV STUFF WORKS BEST AND LASTS THE LONGEST." PRN GIVEN (SEE MAR). ASSESSMENT DONE. DRIED DRAINAGE NOTED, PACKING IN PLACE. INDURATION AROUND WOUND. DARK URINE EMPTIED FROM URINAL. PROVIDED WITH SUGAR FREE JELLO. CALL LIGHT WITHIN REACH.
--- NOTE | 2021-04-10 02:10 | NUR ---
ROUNDED ON pt. REPORTED PAIN IS 6/10. RESTING IN BED ON RIGHT SIDE, ON PHONE. NO REQUESTS AT THIS TIME. CALL LIGHT WITHIN REACH.
--- NOTE | 2021-04-10 04:18 | NUR ---
IN TO START IV ANTIBIOTIC. pt SNORING, EYES CLOSED, RESPIRATIONS REGULAR AND UNLABORED. WOKE TO NOISE IN ROOM, REPORTED 5/10 PAIN, PRN TYLENOL GIVEN (SEE MAR). NO FURTHER REQUESTS. CALL LIGHT WITHIN REACH.
--- NOTE | 2021-04-10 07:00 | NUR ---
IN TO DO VITALS. pt WOKE TO VOICE. REPORTED PAIN "REALLY GOOD IT BARELY HURTS" 05/12. DECLINED PAIN MEDICATION. VITALS DONE. EMPTIED URINAL WITH CONCENTRATED URINE. NO REQUESTS. CALL LIGHT WITHIN REACH.
--- NOTE | 2021-04-10 07:05 | NUR ---
bedside report from Laura ortiz. pt apears sleeping resp rate reg. call light in reach, iv fusing, nad
--- NOTE | 2021-04-10 09:00 | NUR ---
RN IN TO ASSESS WOUND PT FINISHED SHOWER - LEFT PETER AREA WOUND OPEN WITH GAUZE THAT IS PACKED AND STRING IS WICKED OUT - SMALL AMT OF WATER/BLOOD DRAINAGE WITH SHOWER AND RINSING. CLEAN PETER PAD AND UNDERPANTS, GOWN TO PT. AREA IS STILL SWOLLEN - PT REASSURED THAT DRAINAGE WAS OK AND NOT TO PULL ON GAUZE OR PACKING - POURPOSE WAS TO ALLOW WOUND TO DRAIN. PT LINEN CHANGED ON BED AND HE IS ABLE TO INDEPENDENTLY AMBULATE. BACK TO BED, MEAL COMPLETE, CALL LIGHT IN REACH - BS WNL.
--- NOTE | 2021-04-10 11:59 | NUR ---
sitz bath kit provided to pt and educated.
--- NOTE | 2021-04-10 12:12 | NUR ---
dr serra in with rn and pt - he removed gauze - site wnl - covered with pad. educated on dc meds and swelling with . educated on drain in place.
[2021-04-10] MEDS ORDERED: SULFAMETHOXAZO1 EAC1 PO (12:23)
[2021-04-10] MEDS ORDERED: METRONIDAZOLE250 MG PO (12:23)
[2021-04-10] MEDS ORDERED: CIPROFLOXACIN500 MG PO (12:24)
[2021-04-10] MEDS ORDERED: ACETAMINOPHEN500 MG PO (12:25)
[2021-04-10] MEDS ORDERED: DILAUDID4 MG PO (12:28)
[2021-04-10] MEDS ORDERED: AUGMENTIN 875-1 EACH PO (12:43)
--- NOTE | 2021-04-11 17:30 | OR ---
[facility] [address] [place], [place] [address] Signed DATE OF OPERATION: 04/09/2021 SURGEON: Chela Gan MD PREOPERATIVE DIAGNOSES: 1. Recurrent left ischiorectal abscess. 2. Recent drainage of left recurrent perianal abscess with placement of seton for recurrent uuioyse-zn-eej. POSTOPERATIVE DIAGNOSES: 1. Recurrent left ischiorectal abscess. 2. Recent drainage of left recurrent perianal abscess with placement of seton for recurrent snimpvj-ye-hbr. PROCEDURES: 1. Exam under anesthesia. 2. Incision and drainage of complex ischiorectal abscess. 3. Placement of additional yellow vessel loop seton for ischiorectal abscess in continuity with the perianal abscess seton. ANESTHESIA: Saddle block, Janis Fortune CRNA and local 10 mL of 0.25% Marcaine with epinephrine. INDICATIONS: This 40-year-old morbidly obese diabetic man is a patient of Dr. Ladarius Berger and presented to the emergency room and evaluated by Dr. Rustam Blas with pain in the left perianal area. On April 06, the patient had undergone exam under anesthesia with findings consistent with a recurrent perianal abscess and dgsizsf-tg-eit. In the past year, he had undergone incision and drainage, requiring additional drainage by me and had healed all of that out. The seton that was placed recently allowed for marked improvement of his situation. In the past 48 hours, he developed increasing swelling and pain in the left perianal area despite placement of the seton well positioned within the hlucicw-sd-beo, which was well identified. He presented to the emergency room again today and was found to have tenderness and fluctuance and a CT scan was performed in concert with my direction confirming an ischiorectal, perirectal, deep abscess separate and distinct from the most recently drained process. On that basis, I have recommended exam under anesthesia and drainage of the abscess, placement of drain was appropriate. It was noted that his previous ischiorectal abscess that he had drained was with a [place] drain with a knotted end. Electronically Signed By: CHELA GAN MD 04/11/21 1730 PATIENT NAME: LUZ MARIA SMITH OPERATIVE REPORT DATE OF : 76 REPORT #: [id number] PHYSICIAN: CHELA GAN MD PCP: LADARIUS BERGER MD REPORT IS CONFIDENTIAL AND NOT TO BE RELEASED WITHOUT AUTHORIZATION [facility] [address] [place] [id number] Signed FINDINGS: Indeed, there was a recurrent ischiorectal abscess. Copious amounts of purulent material was noted. Gram stain and culture were obtained. Complete drainage of the area was undertaken. The area of previous placement of seton was well positioned without sign of problem. A yellow vessel seton was placed in continuity with the previous seton drainage allowing for continued drainage of this area. DESCRIPTION OF PROCEDURE: The patient was brought to the operating room and given a saddle block anesthetic and placed in a prone alexandr-knife position. Meropenem was administered. In the prone alexandr-knife position, buttocks were taped apart. The area was prepared with a Betadine based solution. Examination showed firmness and fluctuance in the region of the left perianal area outside the level of previous drainage of fcbgwck-gj-qyb. The seton from previous was well positioned. Using an #11 blade, a lateral incision was made in the area of greatest fluctuance using a tonsil clamp. Penetration of the subcutaneous space and ischiorectal fossa was undertaken. Copious amounts of purulent material was drained. The entire suction was used to further interrogate the space, which was rather large. Continuous drainage was noted. Breakdown of loculations accomplished ultimately. An anal retractor was used to identify the internal aspect of the process. A yellow vessel loop seton was placed in the area internal from the previous seton and secured with multiple knots as well. Irrigation was undertaken with approximately a liter of sterile saline solution, and once cleared, the drainage site was packed with 0.5 inch iodoform gauze to secure hemostasis. A 10 mL of 0.25% Marcaine was injected locally. A Genna-Pad was applied, and the patient was taken out of the prone position into a supine position and taken to the recovery room in good condition. Blood loss was less than 20 mL in aggregate. Sponge, needle, and instrument counts were reported as correct x3. MD ANJU Holland/MODL /[id number] cc: Ladarius Berger MD Electronically Signed By: CHELA GAN MD 04/11/21 1730 PATIENT NAME: LUZ MARIA SMITH OPERATIVE REPORT DATE OF : 76 REPORT #: [id number] PHYSICIAN: CHELA GAN MD PCP: LADARIUS BERGER MD REPORT IS CONFIDENTIAL AND NOT TO BE RELEASED WITHOUT AUTHORIZATION [address] [address] Signed Copies: LADARIUS BERGER DMD ~ Electronically Signed By: CHELA GAN MD 04/11/21 1730 PATIENT NAME: SARAHLUZ MARIA OPERATIVE REPORT DATE OF : 76 REPORT #: [id number] PHYSICIAN: CHELA GAN MD PCP: LADARIUS BERGER MD REPORT IS CONFIDENTIAL AND NOT TO BE RELEASED WITHOUT AUTHORIZATION
--- NOTE | 2021-04-11 17:30 | HP ---
[facility] [address] [place], [place] [address] Signed ADMISSION DATE: 04/09/2021 REASON FOR ADMISSION: Recurrent left ischiorectal abscess. HISTORY OF PRESENT ILLNESS: This 40-year-old white man is known to me from the past having undergone incision and drainage of a left perirectal abscess by Dr. Airam Almanza in August of 2020, with recurrent ischiorectal abscess drained by me shortly thereafter. He healed up entirely, but presented to the emergency room on April 06 with findings that were consistent with an undrained abscess and mddkdys-jl-ire. He underwent incision and drainage and placement of yellow vessel seton at that time anticipating fistulotomy in due course. He was discharged with antibiotics, but presented to the emergency room again today with swelling and pain in the perianal area. He was evaluated by Dr. Blas and upon conferring with me, a CT scan of the pelvis was obtained that shows a fluid collection in the pararectal space much deeper than the area recently drained most consistent with ischiorectal abscess. He is admitted for further evaluation and care. PAST MEDICAL HISTORY: Notable for diabetes mellitus (insulin dependent). He also has hypertension. MEDICATIONS: His current medicines include Victoza, losartan, metformin, pioglitazone, and rosuvastatin. SOCIAL HISTORY: He has a and children. He lives in [place]. He is on [facility]. PHYSICAL EXAMINATION: GENERAL: An obese, white man, who looks to be without serious systemic toxicity. VITAL SIGNS: Temperature is 98.6, pulse was 94, blood pressure 128/84, and pulse oximetry 99% on room air. NECK: Shows no thyromegaly. CHEST: Shows normal respiratory excursion. There is no tachypnea. ABDOMEN: Quite obese, but soft. GENITOURINARY: Examination of the perianal area shows marked tenderness in the perianal area on the left side. A previous vessel loop seton remains in place. IMAGING DATA: I have reviewed the CT scan in detail as well as the reports, there clearly is undrained fluid collection much higher in the pararectal space considered ischiorectal. The Electronically Signed By: CHELA GAN MD 04/11/21 1730 PATIENT NAME: LUZ MARIA SMITH HISTORY AND PHYSICAL DATE OF : 76 REPORT #: [id number] PHYSICIAN: CHELA GAN MD PCP: LADARIUS BERGER MD REPORT IS CONFIDENTIAL AND NOT TO BE RELEASED WITHOUT AUTHORIZATION [facility] [address] [place], [place] [address] Signed previous area of kmpepdo-rc-omj, though well drained, is not really even visible on the current imaging study. ASSESSMENT AND PLAN: The patient has complex recurrent perianal and ischiorectal abscess, almost certainly related to high xldrypc-oo-wyn. Given his diabetes, obesity, and other factors, successful drainage is paramount and management of this problem going forward may be more complex than usual. At this point, I would recommend incision and drainage of the site possibly with Pezzer catheter or possibly a long vessel loop depending on clinical findings. He understands and wished to proceed. MD ANJU Holland/MODL /[id number] cc: MD Eva Vicente MD Robert G Johnson, MD Copies: AIRAM ALMANZA MD, KELLY DEAN MD JOHNSON, ROBERT D DMD ~ Electronically Signed By: CHELA GAN MD 04/11/21 1730 PATIENT NAME: LUZ MARIA SMITH HISTORY AND PHYSICAL DATE OF : 76 REPORT #: [id number] PHYSICIAN: CHELA GAN MD PCP: LADARIUS BERGER MD REPORT IS CONFIDENTIAL AND NOT TO BE RELEASED WITHOUT AUTHORIZATION
== END 2021-04-10 13:10 | disposition home or self-care (01) | DRG 395 ==
LOC: ED 07:15 → MS 12:11
PROVIDERS: ADMIT Surgery; ATTEND Surgery
PROC: 0J9B0ZZ Drainage of Perineum Subcutaneous Tissue and Fascia, Open Approach (ICD-10-PCS; principal; 2021-04-09 13:04)
DX: K61.39 Other ischiorectal abscess (principal); K61.0 Anal abscess; Z20.822 Contact with and (suspected) exposure to COVID-19; E11.9 Type 2 diabetes mellitus without complications; Z79.84 Long term (current) use of oral hypoglycemic drugs; Z79.899 Other long term (current) drug therapy
CPT/HCPCS: 00902; 72193; 80053; 85025; 87070; 87075; 87205; 99284-25; A9270; J1170; J1644; J1815; J1885; J2001; J2185; J2250; J2270; J2405; J2704; J7030; J7121; Q9967; U0003

== ENCOUNTER → 2021-04-29 | Day surgery (SDC) | payer OTHER ==
[~2021-04-29] VITALS: Ht 180.3 cm; Wt 141.2 kg
[~2021-04-29] MED LIST changes: +AUGMENTIN 875-1 EACH PO; +CLEOCIN HCL300 MG PO; +DILAUDID4 MG PO; +SULFAMETHOXAZO1 EAC1 PO
--- OUTSIDE RECORDS SUMMARY | 2021-04-29 10:53 | XMS ---
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 E.Alma Rosa VISIT COUNT ([address] 6 [facility] TOTAL 6 NOTE: Visits indicate total known visits. ED/UCC VISIT TRACKING (12 MO.) 04/29/2021 08:38 [facility] [place] TYPE: Emergency COMPLAINT: - WOUND ON L SIDE BUTTOCK 04/09/2021 07:16 [facility] TYPE: Emergency COMPLAINT: - LT HIP SWELLING 04/05/2021 22:32 [facility] TYPE: Emergency COMPLAINT: - SKIN PROBLEM/ ABSCESS 09/18/2020 19:12 [facility] [place] TYPE: Emergency COMPLAINT: - POST OP SWELLING 09/04/2020 21:45 [facility] TYPE: Emergency COMPLAINT: - POST OP PROBLEM 08/31/2020 05:18 [facility] TYPE: Emergency COMPLAINT: - PAIN INPATIENT VISIT TRACKING (12 MO.) 04/09/2021 12:11 [facility] TYPE: Medical Surgical COMPLAINT: - RECURRENT ISCHIO RECTAL ABSCESS DIAGNOSES: - Other medical terminologist (current) drug therapy - Anal abscess - Other ischiorectal abscess - Anal abscess - Other retirement (current) drug therapy - longterm (current) use of oral hypoglycemic drugs - Type 2 diabetes mellitus without complications - 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 (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) use of oral hypoglycemic drugs - Type 2 diabetes mellitus without complications 04/05/2021 22:33 [facility] TYPE: Observation COMPLAINT: - PERIRECTAL ABSCESS DIAGNOSES: - 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 (current) use of oral hypoglycemic drugs - Type 2 diabetes mellitus without complications - Morbid (severe) obesity due to excess calories - Body mass index [BMI]40.0-44.9, adult - Rectal abscess 09/18/2020 23:58 [facility] TYPE: Observation COMPLAINT: - PERIRECTAL ABCESS DIAGNOSES: - Rectal abscess - Anal abscess 09/04/2020 21:46 [facility] TYPE: Observation COMPLAINT: - POST OP BLEEDING DIAGNOSES: - Postprocedural hemorrhage of skin and subcutaneous tissue following other procedure - Other specified misadventures during surgical and medical care - Postprocedural hemorrhage of a digestive system organ or structure following a digestive system procedure - Other specified postprocedural states - Obesity, unspecified [email or web address]
--- NOTE | 2021-04-29 15:00 | NUR ---
04/29/21 1500 May Ballard6- PT ARRIVES TO PACU AWAKE AND TALKING WITH STAFF. PT REPORTS NO PAIN OR NAUSEA. RESP EVEN AND UNLABORED. OXYGEN SAT MID TO HIGH 90'S ON RA.
--- NOTE | 2021-04-29 15:27 | NUR ---
NOTIFIED VIA PHONE DR. ALMANZA OF MICRO LAB RESULTS. MANY WBC WITH MODERATE GRAM NEGATIVE RODS.
--- NOTE | 2021-04-30 08:24 | CONS ---
[facility] [address] [place], [place] [address] Signed DATE OF CONSULTATION: 04/29/2021 CHIEF COMPLAINT: Left perirectal pain. HISTORY OF PRESENT ILLNESS: Luz Maria is a 40-year-old, obese, diabetic gentleman, who began treating his diabetes last summer. He has had trouble with a recurring left sided perirectal abscess. It has been incised and drained several times including two weeks ago. He has a seton stitch in place. Unfortunately, he felt pain and swelling come back the last couple of days. He therefore came back to the emergency room for evaluation. His white count is normal, but the CT scan shows the abscess has recurred. I was asked to see him as a general surgeon on-call. PAST MEDICAL HISTORY: Left perirectal abscess, valley fever 2004, childhood heart murmur and type 2 diabetes, obesity. PAST SURGICAL HISTORY: I and D of perirectal abscess multiple times. SOCIAL HISTORY: Dr. Ladarius Berger is his primary care provider. Ximena is his mother at [phone]. He prefers the [facility]. FAMILY HISTORY: None. REVIEW OF SYSTEMS: He had 10 systems reviewed and no new issues. ALLERGIES: No known drug allergies. MEDICATIONS: 1. Ibuprofen. 2. Bactrim. 3. Flagyl. 4. Tylenol. 5. Dilaudid. 6. Augmentin. 7. Metformin. 8. Losartan. Electronically Signed By: AIRAM ALMANZA MD 04/30/21 0824 PATIENT NAME: LUZ MARIA SMITH CONSULTATION DATE OF : 76 REPORT #: [id number] PHYSICIAN: AIRAM ALMANZA MD PCP: LADARIUS BERGER MD REPORT IS CONFIDENTIAL AND NOT TO BE RELEASED WITHOUT AUTHORIZATION [facility] [address] [place], [place] [address] Signed 9. Rosuvastatin. 10. Pioglitazone. 11. Victoza. PHYSICAL EXAMINATION: VITAL SIGNS: Blood pressure is 110/74, heart rate is 86, respiratory rate 15, temperature is 98.0, he is 98% on room air. He is 5 feet 11 inches at 141 kg, which is 311 pounds. GENERAL: Luz Maria is a 40-year-old gentleman who does not appear systemically ill or toxic. He is lying on his ER bed. LUNGS: Generally clear to auscultation bilaterally. HEART: Regular rate and rhythm without murmurs. ABDOMEN: Quite obese. He clearly has induration, warmth and pain and swelling in the left perirectal area. In the anal canal, I can see his seton stitch. LABORATORY DATA: His white blood count 6.9, hemoglobin 12.7, mean cell volume 79. Glucose is 202. His COVID test is pending. RADIOGRAPHIC STUDIES: CT scan of the abdomen and pelvis is reviewed along with the report and one can easily see the recurrent left perirectal abscess and the seton stitch. ASSESSMENT AND PLAN: Luz Maria is a 40-year-old gentleman who presents with his recurrent left perirectal abscess. He is going to be taken over to the operating room shortly for incision and drainage. I have reviewed perirectal abscesses with him in great detail. He understands there is risk including, but not limited to bleeding, infection, scarring, change in contour of the skin as well as recurrent abscesses and/or fistula tract and loss of his sphincter tone. He has expressed understanding and would like to proceed. Airam Almanza MD ALB/MODL /[id number] cc: MD Ladarius Vicente MD Electronically Signed By: AIRAM ALMANZA MD 04/30/21 0824 PATIENT NAME: LUZ MARIA SMITH CONSULTATION DATE OF : 76 REPORT #: [id number] PHYSICIAN: AIRAM ALMANZA MD PCP: LADARIUS BERGER MD REPORT IS CONFIDENTIAL AND NOT TO BE RELEASED WITHOUT AUTHORIZATION [facility] [address] [place], [place] [address] Signed Copies: AIRAM ALMANZA MD, ROBERT D DMD ~ Electronically Signed By: AIRAM ALMANZA MD 04/30/21 0824 PATIENT NAME: LUZ MARIA SMITH CONSULTATION DATE OF : 76 REPORT #: [id number] PHYSICIAN: AIRAM ALMANZA MD PCP: LADARIUS BERGER MD REPORT IS CONFIDENTIAL AND NOT TO BE RELEASED WITHOUT AUTHORIZATION
--- NOTE | 2021-04-30 08:24 | OR ---
[facility] [address] [place], [place] [address] Signed DATE OF OPERATION: 04/29/2021 SURGEON: Airam Almanza MD PREOPERATIVE DIAGNOSIS: Recurrent left perirectal abscess. POSTOPERATIVE DIAGNOSIS: Recurrent left perirectal abscess. PROCEDURE: Incision and drainage of left lateral perirectal abscess. ESTIMATED BLOOD LOSS: None. INDICATIONS: Luz Maria is a 40-year-old, obese, diabetic gentleman, who presented last year before he was diagnosed with his diabetes. He had a left perirectal abscess that was incised and drained. He went back home to [place] to see doctors in that area. They confirmed his diabetes and started him on medications. Apparently everything went fine for quite some time. He then had several recurrences of this abscess and has been working with one of our local surgeons. He just had it drained a couple of weeks ago and seton stitch had been replaced. Unfortunately, he felt some recurrent swelling in the last couple of days and realized it was coming back. He came to the emergency room for evaluation. He is a large man at 310 pounds. The ER doctor had repeated the CT scan and essentially the abscess is the same. One could see the seton in place. I was a general surgeon on-call, asked to see him in the emergency room. I met with Luz Maria with respect to the above. On digital rectal exam, he has good sphincter tone with the seton in place, but he clearly has indurated swelling in the left lateral position. I can see a previous radial incision and drainage site. It seems to be well healed. I explained to Luz Maria the above findings. He understands he needs to go back and have this opened and drained. On this occasion, I told him we would cut out an ellipse of skin and therefore give the cavity a longer time to heal from the inside out. He and his actually are pretty well-versed in this. He knows we are going to pack it with gauze and he will remove that in the morning. He will then continue to shower and bathe as usual. He is welcome to wear a navi pad or place some gauze in that area inside his underwear as it heals in. He knows there is risk to the surgery including, but not limited to bleeding, infection, scarring, change in contour of the skin as well as damage to the sphincters with resulting variable degrees of incontinence. He expressed Electronically Signed By: AIRAM ALMANZA MD 04/30/21 0824 PATIENT NAME: LUZ MARIA SMITH OPERATIVE REPORT DATE OF : 76 REPORT #: [id number] PHYSICIAN: AIRAM ALMANZA MD PCP: LADARIUS BERGER MD REPORT IS CONFIDENTIAL AND NOT TO BE RELEASED WITHOUT AUTHORIZATION [address] [address] Signed understanding and wished to proceed. PROCEDURE IN DETAIL: Luz Maria was given a saddle block by our nurse trail construction worker. He was taken in the operating room and placed in a prone alexandr-knife position. He was given preoperative cefepime and Flagyl. SCDs were utilized. He was then prepped and draped in the usual sterile fashion. He was given monitored anesthesia care to include propofol by our nurse trail construction worker. We could feel his abscess cavity quite readily with digital exam. We could see the seton in position. Inside the anal canal was evaluated with the half-nuñez retractor and we did not see any pus egressing through the seton internally. We then used his previous I and D site and we just simply made elliptical incision with the cautery about the width of my index finger and about twice as long as my index finger just through the full-thickness of the skin. Copious amounts of pus were evacuated, we took our wound cultures. We broke up a few loculations and injected some local anesthetic into that surrounding skin. The wound was irrigated and suctioned out until clear. We then used full-strength Dakin's solution. This soaked gauze and we placed that into the wound cavity mainly for hemostasis. This was covered with a dry ABD and underwear and Luz Maria was then rotated into the supine position onto his hospital bed and taken into recovery room in stable condition. He tolerated the procedure quite well. Airam Almanza MD ALB/MODL /[id number] cc: MD Ladarius Holland MD Andrew L Bower, MD Copies: CHELA GAN MD, ROBERT D DMD Electronically Signed By: AIRAM ALMANZA MD 04/30/21 0824 PATIENT NAME: LUZ MARIA SMITH OPERATIVE REPORT DATE OF : 76 REPORT #: [id number] PHYSICIAN: AIRAM ALMANZA MD PCP: LADARIUS BERGER MD REPORT IS CONFIDENTIAL AND NOT TO BE RELEASED WITHOUT AUTHORIZATION [facility] [address] [facility] [place], [place] [address] Signed AIRAM ALMANZA MD ~ Electronically Signed By: AIRAM ALMANZA MD 04/30/21 0824 PATIENT NAME: SARAHLUZ MARIA SUSAN OPERATIVE REPORT DATE OF : 76 REPORT #: [id number] PHYSICIAN: AIRAM ALMANZA MD PCP: LADARIUS BERGER MD REPORT IS CONFIDENTIAL AND NOT TO BE RELEASED WITHOUT AUTHORIZATION
== END ==
LOC: ED 08:38 → DS 14:06
PROVIDERS: ATTEND Colon & Rectal Surgery
PROC: 0D9P7ZZ Drainage of Rectum, Via Natural or Artificial Opening (ICD-10-PCS; principal; 2021-04-29 14:01)
DX: K61.1 Rectal abscess (principal); E66.9 Obesity, unspecified; E11.9 Type 2 diabetes mellitus without complications; Z79.84 Long term (current) use of oral hypoglycemic drugs; Z68.41 Body mass index [BMI] 40.0-44.9, adult
CPT/HCPCS: 72193; 80048; 85025; J0692; J1170; J1885; J2001; J2250; J2704; J7121; Q9967; U0003

== ENCOUNTER 2021-07-01 08:57 | Day surgery (SDC) | payer OTHER ==
[~2021-07-01] VITALS: Ht 180.3 cm; Wt 138.3 kg
[~2021-07-01 08:57] MED LIST changes: +AMOX TR-K CLV1 EAC1 PO; +AMOXICILLIN500 MG PO; +BD ULTRA-FINE1 EAC3 MISC; +CIPRO500 MG PO; +LIPITOR40 MG PO; +VENTOLIN HFA18 GM INH
--- NOTE | 2021-07-01 11:26 | NUR ---
07/01/21 Roseann6 Sharron Choudhury 1122- PT TO PACU IN LL POSITION. EYES CLOSED BUT RESPONDS TO VERBAL STIMULI. PT DENIES PAIN. BREATHING EASY AND UNLABORED. SPO2 >90% ON ROOM AIR. PT ENCOURAGED TO PASS GAS. PT EDUCATED ON POC IN PACU.
--- NOTE | 2021-07-02 11:23 | OR ---
[facility] [address] [place], [place] [address] Signed DATE OF OPERATION: 07/01/2021 SURGEON: Chela Gan MD PREOPERATIVE DIAGNOSIS: Recurrent left perirectal and ischiorectal abscess, assess for possible inflammatory bowel disease. POSTOPERATIVE DIAGNOSES: 1. No clinical evidence of inflammatory bowel disease. 2. Multiple polyps (6). PROCEDURES: Total colonoscopy to cecum with cold snare polypectomy x3 and cold morcellation polypectomy x3 and rectal biopsy. ANESTHESIA: Intravenous sedation, fentanyl 100 mcg and Versed 8 mg. INDICATION: This 41-year-old morbidly obese white man is a patient of Dr. Ladarius Berger. He has diabetes. He has undergone left perirectal and ischiorectal abscess formation on more than one occasion and currently has a yellow vessel loop seton in place anticipating anal fistulotomy. He self-referred elsewhere to [place] for a 2nd opinion, who recommended colonoscopy be undertaken to assess for inflammatory bowel disease, though he does not have symptoms of that other than the recurrent perirectal abscess problem. He is admitted at this time to undergo colonoscopy on that basis. The risks of bleeding, infection, and perforation were reviewed with him. He understands and wished to proceed. FINDINGS: The prep was adequate. Complete colonoscopy was undertaken to the cecum. He had 6 polyps in total, all excised completely. There was no clinical evidence of inflammatory bowel disease. The biopsies were taken of the rectum as well. A left perianal yellow vessel loop seton was in place. PROCEDURE IN DETAIL: The patient was brought to the endoscopy suite and placed in the lateral decubitus position given intravenous sedation to the point of slurred speech and nystagmus with full cardiopulmonary monitoring. Digital rectal examination confirmed the anal seton in Electronically Signed By: CHELA GAN MD 07/02/21 1123 PATIENT NAME: LUZ MARIA SMITH OPERATIVE REPORT DATE OF : 76 REPORT #: [id number] PHYSICIAN: CHELA GAN MD PCP: LADARIUS BERGER MD REPORT IS CONFIDENTIAL AND NOT TO BE RELEASED WITHOUT AUTHORIZATION [facility] [address] [place], [place] [address] An Olympus video colonoscope was passed in the rectum and manipulated throughout the colon ultimately intubating the cecum itself. The ileocecal valve was normal. The scope was withdrawn from that point. Examination showed no sign of abnormality until approximately 80 cm from the anal verge, where a small polyp was noted. Cold snare polypectomy was undertaken as well as morcellation polypectomy to excise the lesion. The scope was withdrawn. The 5 additional polyps were noted, all of them in the sigmoid or rectum measuring at 30 cm, 20 cm, 15 cm, 12 cm, and 10 cm. All of them excised with combination of snare and cold morcellation technique. Biopsies obtained of the rectum to assess for colitis that is unlikely. The scope was withdrawn and removed. The patient was taken to recovery room in good condition. CONCLUDING DIAGNOSES: 1. Multiple polyps. 2. Well-position anal seton. PLAN: We will plan for exam under anesthesia and anal fistulotomy in the near future. Repeat colonoscopy would be recommended in 1 to 2 years depending on histology of the resected specimen. Chela Gan MD JM/MODL /[id number] cc: Ladarius Berger MD Copies: LADARIUS BERGER DMD ~ Electronically Signed By: CHELA GAN MD 07/02/21 1123 PATIENT NAME: LUZ MARIA SMITH OPERATIVE REPORT DATE OF : 76 REPORT #: [id number] PHYSICIAN: CHELA GAN MD PCP: LADARIUS BERGER MD REPORT IS CONFIDENTIAL AND NOT TO BE RELEASED WITHOUT AUTHORIZATION
== END 2021-07-01 11:52 | disposition home or self-care (01) ==
LOC: OPS 08:57 → DS 09:00 → OPS 10:15
PROVIDERS: ATTEND Surgery
PROC: 0DBN8ZX Excision of Sigmoid Colon, Via Natural or Artificial Opening Endoscopic, Diagnostic (ICD-10-PCS; 2021-07-01)
PROC: 0DBP8ZX Excision of Rectum, Via Natural or Artificial Opening Endoscopic, Diagnostic (ICD-10-PCS; principal; 2021-07-01 09:45)
DX: K63.5 Polyp of colon (principal); K61.1 Rectal abscess; E66.9 Obesity, unspecified; E11.9 Type 2 diabetes mellitus without complications
CPT/HCPCS: 99153; G0500; J2250; J3010; J7121

== ENCOUNTER 2021-09-23 07:40 | Day surgery (SDC) | payer OTHER ==
[~2021-09-23] VITALS: Ht 180.3 cm; Wt 134.1 kg
[~2021-09-23 07:40] MED LIST changes: +ACID REDUCER20 MG PO; +CELEBREX200 MG PO; +ONDANSETRON ODT8 MG PO; +OXYCODONE HCL5 MG PO
--- NOTE | 2021-09-23 10:56 | NUR ---
09/23/21 1056 Milagro Calloway 1044 PATIENT IS IN PACU. PATIENT IS REACTIVE TO STIMULI. PATIENT DENIES ANY PAIN OR NAUSEA. SPINAL LEVEL CHECKED. PATIENT IS ON 10 LITERS OF OXYGEN. BREATHING EQUAL AND UNLABORED. IVF INFUSING. 1047 PATIENT OXYGEN TITRATED DOWN TO ROOM AIR. PATIENT OXYGEN SATURATIONS ARE ABOVE 95%. BREATHING EQUAL AND UNLABORED. PATIENT ABLE TO MOVE EXTERMITIES. PATIENT IS REACTIVE TO STIMULI.
--- NOTE | 2021-09-23 14:15 | OR ---
[facility] [address] [place], [place] [address] Signed DATE OF OPERATION: 09/23/2021 SURGEON: Chela Gan MD PREOPERATIVE DIAGNOSES: 1. Left anterolateral wrdanus-wo-uel with seton. 2. Obesity; recent gastric sleeve resection. POSTOPERATIVE DIAGNOSES: 1. Left anterolateral elbwcqz-ze-svx with seton. 2. Obesity; recent gastric sleeve resection. PROCEDURE: Exam under anesthesia and anal fistulotomy. ANESTHESIA: Spinal; Wilbert Arreguin CRNA and local 5 mL of 0.25% Marcaine with epinephrine. INDICATION: This 41-year-old white man has had complex ischiorectal abscess as well as anal fistula development. He has a yellow vessel seton in place from a left anterior persistent hhbhiwn-yz-ckn. Colonoscopy showed no evidence of inflammatory bowel disease. He is here to undergo exam under anesthesia and anal fistulotomy with the seton as a guide. Notably, the patient recently underwent sleeve resection of the stomach for obesity surgery and has already lost 20 pounds. He understands the risk of bleeding, infection, variable degrees of incontinence and other unforeseen complications and wished to proceed with anal fistulotomy. FINDINGS: The tract was well formed. It was not excessively deep and did not represent the tract from the ischiorectal abscess in the past. It is in the left anterolateral aspect. Division of the tissue was undertaken without problem. The base was cauterized. He does have hemorrhoidal disease associated with all of this. DESCRIPTION OF PROCEDURE: The patient was brought to the operating room and given a spinal anesthetic and placed in the prone alexandr-knife position. Buttocks were taped apart. The area was prepared with Betadine solution. Sterile draping was undertaken. Examination showed the yellow vessel loop to be well positioned in the left anterolateral aspect. The seton was elevated and the tissue tract was incised with electrocautery. The base was cauterized Electronically Signed By: CHELA GAN MD 09/23/21 1415 PATIENT NAME: LUZ MARIA SMITH OPERATIVE REPORT DATE OF : 76 REPORT #: [id number] PHYSICIAN: CHELA GAN MD PCP: LADARIUS BERGER MD REPORT IS CONFIDENTIAL AND NOT TO BE RELEASED WITHOUT AUTHORIZATION [address] [place], [place] [address] Signed fully. A 5 mL of 0.25% Marcaine with epinephrine was injected locally. A peripad was applied. The patient was allowed to emerge from sedation, taken to the recovery room in good condition having suffered no complications. Blood loss was minimal. MD ANJU Holland/MODL /[id number] cc: Ladarius Berger MD Copies: LADARIUS BERGER DMD ~ Electronically Signed By: CHELA GAN MD 09/23/21 1415 PATIENT NAME: LUZ MARIA SMITH OPERATIVE REPORT DATE OF : 76 REPORT #: [id number] PHYSICIAN: CHELA GAN MD PCP: LADARIUS BERGER MD REPORT IS CONFIDENTIAL AND NOT TO BE RELEASED WITHOUT AUTHORIZATION
== END 2021-09-23 11:55 | disposition home or self-care (01) ==
LOC: DS 07:40
PROVIDERS: ATTEND Surgery
PROC: 0D9P30Z Drainage of Rectum with Drainage Device, Percutaneous Approach (ICD-10-PCS; 2021-09-23)
PROC: 0D9Q3ZZ Drainage of Anus, Percutaneous Approach (ICD-10-PCS; principal; 2021-09-23 09:45)
DX: K60.3 Anal fistula (principal); E66.9 Obesity, unspecified; Z68.41 Body mass index [BMI] 40.0-44.9, adult
CPT/HCPCS: 00902; J0690; J1644; J2001; J2250; J2405; J2704; J7121

== ENCOUNTER 2024-05-06 10:57 | Day surgery (SDC) | payer OTHER ==
[~2024-05-06] VITALS: Ht 180.3 cm; Wt 106.8 kg
[~2024-05-06 10:57] MED LIST changes: +IBLOOD GLUCOSE TEST STRIP 1 EA TEST VI PRN; +LACTATED RINGER'S 1,000 ML IV SCH; +LIDOCAINE HCL 1% 5 ML SDV INJ ONE; +MIDAZOLAM HCL 5 MG/5 ML VIAL IV PRN; +fentaNYL citrate 100 MCG/2 ML VIAL IV PRN
[2024-05-06 11:15] VITALS: BP 124/75
[2024-05-06] MEDS ORDERED: MIDAZOLAM HCL 5 MG/5 ML VIAL ONE (11:39)
[2024-05-06] MEDS ORDERED: fentaNYL citrate 100 MCG/2 ML VIAL ONE (11:39)
--- NOTE | 2024-05-06 12:45 | NUR ---
05/06/24 Jordy5 Shyla Kumar 1238-PATIENT ARRIVED TO PACU ON RA RR EVEN. PATIENT REACTIVE TO VERBAL STIMULI OPENING EYES REMAINS VERY DROWSY. PATIENT LAYING LEFT LATERAL ABDOMEN SOFT. IVF INFUSING. GLUCOSE CHECKED 90
[2024-05-06 13:30] VITALS: BP 135/89
--- NOTE | 2024-05-07 11:16 | OR ---
[facility] [address] [place], [place] [address] Signed DATE OF OPERATION: 05/06/2024 SURGEON: Chela Gan MD PREOPERATIVE DIAGNOSES: 1. History of multiple hyperplastic polyps. 2. History of lateral internal sphincterotomy for anal fissure. 3. Recent recurrent rectal bleed. POSTOPERATIVE DIAGNOSES: Small polyps of rectum and rectosigmoid, scattered diverticula of colon, no evidence of colitis. PROCEDURES: Total colonoscopy to cecum with cold snare polypectomy x1, cold morcellation polypectomy x3. ANESTHESIA: Intravenous sedation, fentanyl 150 mcg and Versed 7 mg. INDICATIONS: A 43-year-old man is a patient of Dr. Ladarius Berger, known to me from the past having undergone lateral internal sphincterotomy for anal fissure. He had colonoscopy antecedent to that, in which he had multiple hyperplastic polyps. Since operation, he has done well generally speaking, now recently had rectal bleeding. On that basis, colonoscopy is offered. He understands risk of bleeding, infection, and perforation; wished to proceed. FINDINGS: The prep was excellent. Complete colonoscopy undertaken of the cecum. There were diverticula scattered throughout the colon including one near the cecum proper. The rectosigmoid had a single polyp and there were four small polyps in rectum proper, they were all excised. DESCRIPTION OF PROCEDURE: The patient was brought to the endoscopy suite and placed in the lateral decubitus position given intravenous sedation to the point of slurred speech and nystagmus. Digital rectal examination was normal. Olympus video colonoscope was passed into the rectum and manipulated throughout the colon noting a diverticulum even in the area of the cecum that was somewhat everted. The cecum was otherwise normal. Scope was Electronically Signed By: CHELA GAN MD 05/07/24 1116 PATIENT NAME: LUZ MARIA SMITH OPERATIVE REPORT DATE OF : 76 REPORT #: [id number] PHYSICIAN: CHELA GAN MD PCP: LADARIUS BERGER MD REPORT IS CONFIDENTIAL AND NOT TO BE RELEASED WITHOUT AUTHORIZATION [facility] [address] [place], [place] [address] Signed withdrawn from that point. Examination showed no sign of abnormality other than scattered diverticula. At the rectosigmoid, a small polyp, possibly adenomatous, this was excised with cold morcellation technique. Further withdrawal showed a small polyp in the mid rectum, which was excised with cold snare technique and three small polyps in the low rectum, all hyperplastic in appearance. All excised completely with morcellation technique. Retroflexed view was otherwise normal. Scope was removed, and the patient was taken to the recovery room in good condition. CONCLUDING DIAGNOSES: Polyps, all small, none cancer and scattered diverticula. PLAN: Recommend to maintain high-fiber diet. Repeat colonoscopy in 5-7 years. If he has recurrent bleeding, he will let me know. He will return to the ongoing care of Dr. Berger otherwise. MD ANJU Holland/SCOTTIE /[id number] cc: Ladarius Berger MD Copies: LADARIUS BERGER DMD ~ Electronically Signed By: CHELA GAN MD 05/07/24 1116 PATIENT NAME: LUZ MARIA SMITH SUSAN OPERATIVE REPORT DATE OF : 76 REPORT #: [id number] PHYSICIAN: CHELA GAN MD PCP: LADARIUS BERGER MD REPORT IS CONFIDENTIAL AND NOT TO BE RELEASED WITHOUT AUTHORIZATION
--- NOTE | 2024-05-08 16:36 | PATH ---
[facility] [address] [facility] [place], [place] [address] Signed SPECIMEN(S): A SIGMOID/RECTUM POLYP SPECIMEN(S): B RECTUM POLYP SPECIMEN SOURCE: A. SIGMOID/RECTUM POLYP B. RECTUM POLYP CLINICAL HISTORY: History of colon polyps, episodic rectal bleeding. Post: Polyps FINAL PATHOLOGIC DIAGNOSIS: A. Sigmoid/rectum polyp: - Hyperplastic polyp (one fragment). B. Rectum polyp: - Hyperplastic polyp (two fragments). JVR:clv MICROSCOPIC EXAMINATION: Histologic sections of all submitted blocks are examined by light microscopy. These findings, together with the gross examination, support the pathologic diagnosis. GROSS DESCRIPTION: A. The specimen, labeled and designated "Vrabel, D, sigmoid rectum polyp," is received in formalin and consists of one 0 tissue fragment, 0.5 cm. Entirely submitted in (A1). B. The specimen, labeled and designated "Vrabel, D, rectum polyp," is received in formalin and consists of four bryan soft tissue fragments, ranging from 0.2-0.3 cm. Entirely submitted in (B1). AB (under the direct supervision of a pathologist) The Gross Description was prepared using a voice recognition system. The report was reviewed for accuracy; however, sound-alike word errors, addition and/or deletions may occur. If there is any question about this report, please contact Client Services. PERFORMING LABORATORY: Technical component was performed by [facility], [address] [place] [id number] (CLIA# [id number]). Professional interpretation was performed by [facility], [address] [place] [address], [place] [address] (CLIA#: [id number]). PATIENT NAME: LUZ MARIA SMITH PATHOLOGY DATE OF : 76 REPORT #: [id number] PHYSICIAN: [facility] PCP: LADARIUS BERGER MD REPORT IS CONFIDENTIAL AND NOT TO BE RELEASED WITHOUT AUTHORIZATION [address] [place], [place] [address] Signed Diagnostician: Randell Hamilton MD Pathologist Electronically Signed 05/08/2024 Copies: ~ PATIENT NAME: LUZ MARIA SMITH PATHOLOGY DATE OF : 76 REPORT #: [id number] PHYSICIAN: [facility] PCP: LADARIUS BERGER MD REPORT IS CONFIDENTIAL AND NOT TO BE RELEASED WITHOUT AUTHORIZATION
== END 2024-05-06 13:36 | disposition home or self-care (01) ==
LOC: DS 10:57
PROVIDERS: ATTEND Surgery
PROC: 0DBN8ZZ Excision of Sigmoid Colon, Via Natural or Artificial Opening Endoscopic (ICD-10-PCS; 2024-05-06)
PROC: 0DBP8ZZ Excision of Rectum, Via Natural or Artificial Opening Endoscopic (ICD-10-PCS; principal; 2024-05-06 12:15)
DX: K63.5 Polyp of colon (principal); K62.1 Rectal polyp; K60.50 Anorectal fistula, unspecified
CPT/HCPCS: 88305; 99153; G0500; J2250; J3010; J7121